=== PATIENT | female | born 1985 | race Caucasian/White ===

== ENCOUNTER 2021-01-15 12:38 | Emergency (ER) | payer OTHER, SELFPAY ==
--- NOTE | ~2021-01-15 | XR_ITS ---
EXAMINATION: XR chest 2V DATE: 01/15/2021 13:20 INDICATION: Cough. Chest pain. Shortness of breath. TECHNIQUE: Frontal and lateral views of the chest were obtained. COMPARISON: Chest 2 views 02/04/2014, CT abdomen and pelvis 12/28/2018 FINDINGS: The chest demonstrates clear lungs without pneumonia, pleural effusion, or pneumothorax. Th e heart size is normal. IMPRESSION: 1. No acute cardiopulmonary disease. Reviewed, dictated and finalized at location B.
--- NOTE | 2021-01-15 12:41 | ED.GENADULT ---
HPI - General Adult General Chief complaint: Upper Respiratory Infection Stated complaint: Congestion,Body Aches Time Seen by Provider: 01/15/21 12:40 Source: patient Mode of arrival: ambulatory Limitations: no limitations History of Present Illness HPI narrative: 35-year-old female patient presents to the [facility] with complaints of upper respiratory symptoms that started yesterday. Patient states she has had a slight productive cough, congestion, chest congestion, runny nose. Patient states she has had slight chills but denies fevers or body aches. Patient states she did have a sore throat yesterday but states that it is better today after using cough drops. Patient states she did take an [place] cold and sinus yesterday. Denies any chest pain or shortness of breath at this time. Denies nausea, vomiting or diarrhea. Patient states she has had both of her Covid vaccines at her last Covid vaccine was sometime in October. Patient denies taking any daily antihistamines but states that she is allergic to pollen. Related Data Home Medications Medication Instructions Recorded Confirmed bupropion HCl [Wellbutrin XL] 150 mg PO QAM 01/15/21 01/15/21 Allergies Allergy/AdvReac Type Severity Reaction Status Date / Time Sulfa (Sulfonamide Allergy Mild chest pain Verified 01/15/21 12:57 Antibiotics) Review of Systems Review of Systems: Narrative: CONSTITUTIONAL: Denies fever, chills, or sweats. EYES: Denies visual changes, redness, or discharge. ENT: Positive rhinorrhea, congestion, sore throat, denies otalgia. CARDIOVASCULAR: Denies chest pain, palpitations, or edema. RESPIRATORY: Positive cough, denies dyspnea. GASTROINTESTINAL: Denies abdominal pain, nausea, vomiting, or diarrhea. GENITOURINARY: Denies dysuria or hematuria. SKIN: Denies rash or itching. MUSCULOSKELETAL: Denies back pain, joint pain, or myalgia. NEUROLOGIC: Denies headache, numbness, or weakness. PSYCHIATRIC: Denies anxiety or depression. [facility] Past Medical History Medical History (Updated 01/15/21 @ 13:42 by KAITLYNN Huggins) Anxiety Depression Gastrointestinal disorder When esophageal bleed, acid tear to lining from nausea and vomiting induced hypertension Seasonal allergies Surgical History Surgical History (Updated 01/15/21 @ 12:49 by KAITLYNN Huggins) History of History of orthopedic surgery Right ankle ligament tears Family History Family History Father Hypertension Family history of arthritis Other Diabetes mellitus Social History Social History Smoking status: Current every day smoker Alcohol intake: never Comments At the time of my signature I agree with nursing past medical history, surgical, social, and family history. There is no relevant family history pertinent to the presenting complaint. Exam Narrative: Exam Narrative: GENERAL: Well-appearing, well-nourished, and in no acute distress. HEAD: Normocephalic, atraumatic. EYES: PERRLA and EOMI. ENT: Nares with erythema and edema noted bilaterally, no rhinorrhea or epistaxis. Mucous membranes moist. Posterior pharynx with no erythema, tonsillar Amanda, exudates or lesions present. There is some postnasal drip noted to the posterior pharynx. Bilateral TMs are clear no erythema or foreign bodies in the canal. NECK: Supple. No lymphadenopathy CHEST: Slightly decreased lung sounds noted to the left upper lobe with very slight inspiratory wheezing. No respiratory distress. Patient able talk in clear complete sentences. No tripoding noted. HEART: Regular rate and rhythm. No murmur heard. Normal peripheral pulses. ABDOMEN: Soft, nontender, nondistended, normal active bowel sounds. EXTREMITIES: Normal range of motion. No edema. SKIN: Warm, dry, no rash. NEURO: No focal deficits. Alert and oriented x3. Course R
[2021-01-15 12:55] VITALS: BP 146/87; PULSE 85; RESP 16; TEMP 36.4; O2SAT 100
== END 2021-01-15 13:48 | disposition home or self-care (01) ==
PROVIDERS: Emergency Provider Nurse Practitioner Family
DX: J06.9 Acute upper respiratory infection, unspecified (principal); R05 Cough; J30.9 Allergic rhinitis, unspecified; F41.9 Anxiety disorder, unspecified; F32.9 Major depressive disorder, single episode, unspecified
CPT/HCPCS: 71046; 99213; G0463

== ENCOUNTER 2021-05-08 14:18 | Outpatient (CLI) | payer BC, SELFPAY ==
--- NOTE | ~2021-05-08 | CT_ITS ---
EXAMINATION: CT abdomen pelvis w con INDICATION: Incisional hernia TECHNIQUE: Computed tomographic images of the abdomen and pelvis were obtained after the administrati on of 100 cc of Omnipaque 350 intravenous contrast. The dose-length product (DLP) was 12/28/2018 mGy-cm . Automated exposure control and iterative reconstruction technique were employed. COMPARISON: 12/28/2018 FINDINGS: The lung bases are clear. The heart size is normal. The liver is diffusely low in attenuati on when compared with the spleen, consistent with hepatic steatosis. The spleen, pancreas, gallbladde r, and adrenal glands are normal. The kidneys are unremarkable. The appendix is surgically absent. No pathologically enlarged abdominal or pelvic lymph nodes are identified. There is no free intraperito padma gas or evidence of bowel obstruction. Cysts of the ovaries measure up to 3.4 cm on the left. No definite incisional hernia is identified. There is mild lumbar spondylosis. A tiny fat-containing umb ilical hernia is noted. IMPRESSION: 1. No definite incisional hernia identified. Reviewed, dictated and finalized at location B.
== END 2021-05-08 14:19 | disposition home or self-care (01) ==
LOC: ANHIMG 14:19
PROVIDERS: Visit Provider Obstetrics & Gynecology
DX: K43.2 Incisional hernia without obstruction or gangrene (principal)
CPT/HCPCS: 74177; Q9967

== ENCOUNTER 2021-08-26 08:22 | Emergency (ER) | payer BC, SELFPAY ==
--- NOTE | ~2021-08-26 | XR_ITS ---
EXAMINATION: XR chest 1V portable EXAM DATE: 08/26/2021 08:50 INDICATION: cough TECHNIQUE: Portable AP frontal chest x-ray was obtained. Comparison is made to prior examination from 01/15/2021. FINDINGS: The lungs are clear. There are no pleural effusions. The cardiomediastinal silhouette is within normal limits. There is no pneumothorax suspected. The bones and soft tissues are unremarka ble. IMPRESSION: Normal chest x-ray exam. Reviewed, dictated and finalized at location A. IMPRESSION: Normal chest x-ray exam.
[2021-08-26 08:34] VITALS: BP 141/78; PULSE 89; RESP 16; TEMP 36.8; O2SAT 99
--- NOTE | 2021-08-26 08:36 | ED.URI ---
HPI - URI/Sore Throat General Chief Complaint: Upper Respiratory Infection Stated Complaint: Cough,Difficulty Breathing Time Seen by Provider: 08/26/21 08:35 Source: patient Mode of arrival: ambulatory Limitations: no limitations History of Present Illness HPI Narrative: Patient is a 35-year-old female presenting for evaluation of fever, cough, vomiting. Patient states that she has felt unwell since Tuesday evening when low-grade fevers began. Maximum temperature has been 101 Fahrenheit. Patient states she has not been taking any Tylenol or ibuprofen at this point. She reports inability to tolerate oral intake, was not able to tolerate any clear liquids yesterday secondary to vomiting. She denies abdominal pain or diarrhea. She denies chest pain or shortness of breath. She reports cough. Patient states her son has been sick with similar symptoms and he has had 2 - Covid test. She is vaccinated for Covid and does have a history of Covid this year as well. Patient denies any pleuritic chest pain. No shortness of breath with exertion. Patient does smoke. Denies history of emphysema or COPD. Denies history of asthma. She denies any wheezing. She denies any calf pain or leg swelling. No history of coagulopathy. She has a Nexplanon for control, denies oral contraceptive. Related Data Home Medications Medication Instructions Recorded Confirmed bupropion HCl [Wellbutrin XL] 150 mg PO QAM 01/15/21 01/15/21 Allergies Allergy/AdvReac Type Severity Reaction Status Date / Time Sulfa (Sulfonamide Allergy Mild chest pain Verified 01/15/21 12:57 Antibiotics) Review of Systems Review of Systems: CONSTITUTIONAL: Reports fever and chills EYES: Denies visual changes, redness, or discharge. ENT: Reports congestion without sore throat or otalgia CARDIOVASCULAR: Denies chest pain, palpitations, or edema. RESPIRATORY: Reports cough, denies shortness of breath GASTROINTESTINAL: Denies abdominal pain, reports nausea and vomiting, denies diarrhea GENITOURINARY: Denies dysuria or hematuria. SKIN: Denies rash or itching. MUSCULOSKELETAL: Denies back pain, joint pain, or myalgia. NEUROLOGIC: Denies headache, numbness, or weakness. [facility] Past Medical History Medical History Anxiety Depression Gastrointestinal disorder When esophageal bleed, acid tear to lining from nausea and vomiting induced hypertension Seasonal allergies Surgical History Surgical History History of History of orthopedic surgery Right ankle ligament tears Family History Family History Father Hypertension Family history of arthritis Other Diabetes mellitus Social History Social History Smoking status: Current every day smoker Alcohol intake: never Exam Narrative: GENERAL: Awake, alert, conversant HEAD: Normocephalic, atraumatic. EYES: PERRLA and EOMI. ENT: Nares clear, no rhinorrhea or epistaxis. Mucous membranes moist. NECK: Supple. CHEST: No respiratory distress, breathing even and non labored, lungs are clear to auscultation bilaterally, no wheezing, no rhonchi, no crackles HEART: Regular rate, sinus rhythm ABDOMEN:Non distended, non tender EXTREMITIES: Normal range of motion. No edema. No calf pain, induration, erythema bilaterally. SKIN: Warm, dry, no rash. NEURO:No focal deficits. Alert and oriented x3 Course Vital Signs Vital signs: Vital Signs Temperature 36.8 C 08/26/21 08:34 Pulse Rate 89 08/26/21 08:34 Respiratory Rate 16 08/26/21 08:34 Blood Pressure 141/78 H 08/26/21 08:34 Pulse Oximetry 99 08/26/21 08:34 Temperature 36.8 C 08/26/21 08:34 Pulse Rate 89 08/26/21 08:34 Respiratory Rate 16 08/26/21 08:34 Blood Pressure 141/78 H 08/26/21
[2021-08-26] MEDS: ONDANSETRON INJ 4 MG/2 ML VIAL IV PUSH (08:52)
[2021-08-26] MEDS: SODIUM CHLORIDE 0.9% IV 1,000 ML 999 ML IV CONT (08:52)
[2021-08-26 09:00] LABS: Basophils Absolute Auto 0.1 K/mm3 (0.0-0.1); Basophils Percent Auto 0.8 % (0.2-1.2); Eosinophils Absolute Auto 0.4 K/mm3 (0-0.3); Eosinophils Percent Auto 4.2 % (0-4.4); Hematocrit 46.5 % (37.0-47.0); Hemoglobin 15.7 g/dL (12.0-15.0); Immature Granulocyte Absolute 0.04 K/mm3 (0.00-0.031); Immature Granulocyte Percent A 0.5 % (0-0.5); Lymphocytes Absolute Auto 1.27 K/mm3 (0.9-3.2); Lymphocytes Percent Auto 14.4 % (18.3-44.2); Mean Corpuscular HGB Conc 33.8 g/dl (32-36); Mean Corpuscular Hemoglobin 30.1 pg (26-34); Mean Corpuscular Volume 89.3 fl (80-100); Mean Platelet Volume 10.4 fl (7.4-10.4); Monocytes Absolute Auto 0.7 K/mm3 (0.1-0.6); Monocytes Percent Auto 7.6 % (2.6-8.5); Neutrophils Absolute Auto 6.4 K/mm3 (1.3-6.7); Neutrophils Percent Auto 72.5 % (45.5-73.1); Platelet Count Result 221 k/mm3 (150-375); Red Blood Count 5.21 M/mm3 (4.2-5.4); Red Cell Distribution Width 12.4 % (11.5-14.5); White Blood Count 8.8 K/mm3 (4.5-10.0)
[2021-08-26 09:10] LABS: Alanine Aminotransferase 32 U/L (4-35); Albumin Level 4.3 g/dL (3.5-5.1); Alkaline Phosphatase 97 U/L (38-126); Anion Gap 9 mmol/L (8-16); Aspartate Amino Transferase 27 U/L (14-36); Bilirubin,Total 0.7 mg/dL (0.2-1.3); Blood Urea Nitrogen 9 mg/dL (7-17); Calcium 9.4 mg/dL (8.4-10.2); Carbon Dioxide 24 mmol/L (22-30); Chloride 104 mmol/L (98-107); Estimated CRCL calculation 102 ml/min; Estimated Glomerular Filt Rate > 60; Glucose 123 mg/dL (65-110); Potassium 3.9 mmol/L (3.4-5.0); Sodium 137 mmol/L (137-145)
[2021-08-26] MEDS: methylPREDNISolone SOD SUCC 125 MG VIAL IV PUSH (09:27)
[2021-08-26 09:48] VITALS: BP 139/75; PULSE 72; RESP 16; O2SAT 100
[2021-08-26 17:58] LABS: SARS-CoV-2 RNA PCR Negative
== END 2021-08-26 09:49 | disposition home or self-care (01) ==
LOC: ANHED 09:28
PROVIDERS: Emergency Provider Emergency Medicine; PCP Family Medicine
DX: J06.9 Acute upper respiratory infection, unspecified (principal); J40 Bronchitis, not specified as acute or chronic; Z20.822 Contact with and (suspected) exposure to COVID-19; F41.9 Anxiety disorder, unspecified; F32.9 Major depressive disorder, single episode, unspecified; F17.200 Nicotine dependence, unspecified, uncomplicated
CPT/HCPCS: 36415; 71045; 80053; 85025; 87804; 96361; 96374; 96375; 99284; C9803; J2405; J2930; J7030; U0003; U0005

== ENCOUNTER → 2021-12-23 08:36 | Outpatient (CLI) | payer BC, SELFPAY ==
--- NOTE | ~2021-12-23 | XR_ITS ---
XR lumbar spine 2-3V DATE: 12/23/2021 08:59 INDICATION: Left low back pain TECHNIQUE: Standing AP, lateral and coned lateral lumbosacral views COMPARISON: None FINDINGS: Normal alignment of the lumbar spine. No fracture or bone destruction is evident. Included lower thoracic and lumbar pedicles are intact. There is minimal degenerative spurring of the lumbar spine. Lumbar and lumbosacral interspaces are we ll preserved. The sacroiliac joints appear normal. IMPRESSION: Minimal degenerative spurring Reviewed, dictated and finalized at location A.
== END ==
PROVIDERS: Visit Provider Chiropractor
DX: M54.50 Low back pain, unspecified (principal)
CPT/HCPCS: 72100

== ENCOUNTER 2021-12-27 12:55 | Emergency (ER) | payer BC, SELFPAY ==
[2021-12-27 13:09] VITALS: BP 147/82; PULSE 103; RESP 18; TEMP 36.6; O2SAT 100
--- NOTE | 2021-12-27 13:35 | ED.GENADULT ---
HPI - General Adult General Chief complaint: Back Pain/Injury Stated complaint: lower back pain radiating down to calf Time Seen by Provider: 12/27/21 13:35 Source: patient Mode of arrival: ambulatory Limitations: no limitations History of Present Illness HPI narrative: 36-year-old female presented for complaint of left hip pain for over 1 week. Pain radiates to left calf. Endorses spasm to buttock and calf. Denies known injury but states she started exercising and has been increasing her treadmill and bicycle time. She states she has been following with a chiropractor and performing exercises, supportive treatments including ice, heat, Epson baths and NSAIDs. Denies numbness, tingling or weakness to the Left leg. Pain worse when sitting/standing too long. Related Data Allergies Allergy/AdvReac Type Severity Reaction Status Date / Time Sulfa (Sulfonamide Allergy Mild chest pain Verified 12/27/21 13:43 Antibiotics) Review of Systems Review of Systems: CONSTITUTIONAL: Denies body aches, fever, chills EYES: Denies visual changes ENT: Denies rhinorrhea, congestion CARDIOVASCULAR: Denies chest pain, palpitations, or edema. RESPIRATORY: Denies cough or dyspnea. GASTROINTESTINAL: Denies abdominal pain, nausea, vomiting, or diarrhea. SKIN: Denies rash, itching, or wounds. MUSCULOSKELETAL:reports left hip pain NEUROLOGIC: Denies headache, numbness, tingling, or weakness. PSYCH: Denies depression or anxiety. All systems reviewed & are unremarkable except as noted in HPI and below PMFSH Past Medical History Medical History Anxiety Depression Gastrointestinal disorder When esophageal bleed, acid tear to lining from nausea and vomiting induced hypertension Seasonal allergies Surgical History Surgical History History of History of orthopedic surgery Right ankle ligament tears Family History Family History Father Hypertension Family history of arthritis Other Diabetes mellitus Social History Social History Smoking status: Current every day smoker Alcohol intake: never Comments At time of signature, I have reviewed and agree with nursing past medical, surgical, social and family history unless otherwise noted. Please see nursing chart for further information. There is no relevant family history pertinent to the presenting complaint Exam Narrative: GENERAL: appears in pain; in no acute distress. HEAD: Normocephalic, atraumatic. EYES: conjunctivae clear NECK: Supple. CHEST: Speaks in full sentences. No respiratory distress. HEART: Regular rate and rhythm. Normal and equal peripheral pulses. EXTREMITIES: Left leg has normal strength and sensation, normal range of motion with flexion/extension/rotation, but endorses pain with movement. Tender to left lower back, left mid buttock over piriformis and left posterior thigh with minimal palpation. No edema or ecchymosis, No open wounds, skin tenting, or obvious deformity; alignment normal, pulse palpable and equal bilaterally, skin warm, dry, pink. Capillary refill less than 3 seconds. Gait is slow/steady. SKIN: Warm, dry, no rash. NEURO: Alert and oriented x3. PSYCH: Normal mood and affect Course Course Emergency Course: Patient is aware of diagnosis, understands and agrees to treatment plan. Anticipatory guidance given. Patient agrees to follow-up as directed and is aware of reasons to seek care at the emergency department. Portions of this record may have been created with voice recognition software Level of Care: Express Care Visit Vital Signs Vital signs: Vital Signs Temperature 97.9 F 12/27/21 13:09 Pulse Rate 103 H 12/27/21 13:09 Respiratory Rate 18 12/27/21 13:09 Blood Pressure
== END 2021-12-27 13:50 | disposition home or self-care (01) ==
PROVIDERS: Emergency Provider Nurse Practitioner Family; PCP Family Medicine
DX: G57.02 Lesion of sciatic nerve, left lower limb (principal); F17.200 Nicotine dependence, unspecified, uncomplicated
CPT/HCPCS: 99213; G0463

== ENCOUNTER 2022-03-15 09:57 | Emergency (ER) | payer BC, SELFPAY ==
--- NOTE | ~2022-03-15 | CT_ITS ---
EXAMINATION: CT lumbar spine wo con DATE: 03/15/2022 11:03 INDICATION: Low back pain. TECHNIQUE: Computed tomography (CT) of the lumbar spine was performed without intravenous contrast. A utomated exposure control and iterative reconstruction technique were employed. The dose-length produ ct was 1512.14 mGy-cm. COMPARISON: Lumbar spine radiograph dated 12/23/2021 FINDINGS: 3-4 mm retrolisthesis L5 on S1. Vertebral body heights are normal. No fracture. No pars interarticula ris defects. Mild disc height loss at L5-S1. Paravertebral soft tissues are unremarkable. Postoperati ve changes anterior to the right psoas muscle in the right lower quadrant likely related to prior ivone endectomy. Mild bilateral sacroiliac osteoarthritis along with bilateral osteophytic condense and zenaida iac. Paravertebral soft tissues are unremarkable. The following disc levels are specifically discusse d: T12-L1: The disc does not extend beyond the endplate margin. There is moderate left and mild to moder ate right facet joint osteoarthritis. There is no neural foraminal stenosis. There is no central carolee l stenosis. L1-L2: The disc does not extend beyond the endplate margin. There is mild right and mild to moderate left facet joint osteoarthritis. There is no neural foraminal stenosis. There is no central canal denise nosis. L2-L3: Disc is mildly bulging. There is moderate left and mild to moderate right facet joint osteoart hritis. There is no neural foraminal stenosis. There is no central canal stenosis. L3-L4: Disc is mildly bulging. There is mild right and and mild to moderate left facet joint osteoart hritis. There is mild bilateral neural foraminal stenosis. There is mild central canal stenosis. L4-L5: Disc is mildly bulging with superimposed left foraminal zone disc protrusion. There is mild le ft and mild to moderate right facet joint osteoarthritis. There is mild right and mild to moderate le ft neural foraminal stenosis. There is mild central canal stenosis. L5-S1: Disc is bulging with superimposed left foraminal zone disc extrusion with disc material extend ing slightly caudal to the level of the superior endplate of S1. There is mild bilateral facet joint osteoarthritis. There is mild right and mild to moderate left neural foraminal stenosis. There is mil d central canal stenosis lower narrowing of the left lateral recess at the disc extrusion exerting ma ss effect upon the traversing left S1 nerve root. IMPRESSION: 1. Mild lumbar spondylosis. Reviewed, dictated and finalized at location B. IMPRESSION: 1. Mild lumbar spondylosis.
[2022-03-15 10:09] VITALS: BP 133/66; PULSE 94; RESP 20; TEMP 36.6; O2SAT 100
[2022-03-15] MEDS: methylPREDNISolone SOD SUCC 125 MG VIAL IV PUSH (11:18)
[2022-03-15] MEDS: KETOROLAC 30 MG/ML VIAL (*BKC) IV PUSH (11:19)
[2022-03-15 11:21] VITALS: BP 119/75; PULSE 64; RESP 14; O2SAT 100
--- NOTE | 2022-03-15 11:47 | ED.GENADULT ---
HPI - General Adult General Chief complaint: Extremity Injury, Lower Stated complaint: leg pain Time Seen by Provider: 03/15/22 09:59 Source: RN notes reviewed History of Present Illness HPI narrative: Patient presents emergency department from home for left leg pain. Patient states she has had pain for the past 3 months. The pain is located in the left buttocks and radiates down the left leg. Patient states is worse with long sitting and bending states she has been seen in the emergency department and has been told by Dr. Ayers that she may need physical therapy she denies any new trauma or injury to the back of the leg she denies any fevers or chills abdominal pain numbness or tingling in extremities bowel or bladder incontinence or any other symptoms states she has not taking pain medication today Related Data Allergies Allergy/AdvReac Type Severity Reaction Status Date / Time Sulfa (Sulfonamide Allergy Mild chest pain Verified 12/27/21 13:43 Antibiotics) Review of Systems Review of Systems: Gen.: Denies fevers or chills ENT: Denies congestion Respiratory: Denies shortness of breath or cough CV: Denies chest pain or palpitations GI: Denies abdominal pain nausea, emesis or diarrhea denies incontinence Musculoskeletal: See HPI Neuro: Denies numbness, tingling, weakness or focal weakness Skin: Denies rash Except as documented, all other systems reviewed and negative [facility] Past Medical History Medical History Anxiety Depression Gastrointestinal disorder When esophageal bleed, acid tear to lining from nausea and vomiting induced hypertension Seasonal allergies Surgical History Surgical History History of History of orthopedic surgery Right ankle ligament tears Family History Family History Father Hypertension Family history of arthritis Other Diabetes mellitus Social History Social History Smoking status: Current every day smoker Alcohol intake: never Exam Narrative: APPEARANCE: No acute distress, nontoxic, resting in bed EYES: EOMI HEENT: Normocephalic, atraumatic, OMM RESPIRATORY: No respiratory distress Clear to auscultation bilaterally with no rhonchi wheezing or rales. CARDIOVASCULAR: Regular rate and rhythm without murmurs rubs or gallops. ABDOMINAL: Soft, nontender, nondistended, no rebound or guarding MUSCULOSKELETAl: Moves all extremities. No clubbing, cyanosis or edema. Bilateral calves soft and nontender bilateral dorsalis pedis pulse 2+ Back: No midline thoracic or lumbar tenderness palpation tender palpation over left piriformis region NEURO: Awake and alert. Following commands, speech normal, no focal deficits, muscle strength 5 out of 5 bilateral upper and lower extremities SKIN:: Warm, dry. No rashes lesions or abrasions PSYCHIATRIC: Normal affect/mood, Course Course Emergency Course: Reviewed old records Discussed with patient results of workup and diagnosis. Discussed need for follow-up with primary care, proper use of medication, and reasons to return to the emergency department. Patient understands and agrees to current treatment plan Vital Signs Vital signs: Vital Signs Temperature 97.8 F 03/15/22 10:09 Pulse Rate 94 03/15/22 10:09 Respiratory Rate 20 03/15/22 10:09 Blood Pressure 133/66 03/15/22 10:09 Pulse Oximetry 100 03/15/22 10:09 Oxygen Delivery Room Air 03/15/22 10:09 Temperature 97.8 F 03/15/22 10:09 Pulse Rate 64 03/15/22 11:21 Respiratory Rate 14 03/15/22 11:21 Blood Pressure 119/75 03/15/22 11:21 Pulse Oximetry 100 03/15/22 11:21 Oxygen Delivery Room Air 03/15/22 10:09 Medical Decision Making MDM Narrative Medical decision making narrative: Patient
== END 2022-03-15 12:27 | disposition home or self-care (01) ==
PROVIDERS: Emergency Provider Emergency Medicine; PCP Family Medicine
DX: M54.32 Sciatica, left side (principal); F17.200 Nicotine dependence, unspecified, uncomplicated; M47.816 Spondylosis without myelopathy or radiculopathy, lumbar region
CPT/HCPCS: 72131; 96374; 96375; 99284; J1885; J2930

== ENCOUNTER → 2022-09-10 09:18 | Outpatient (CLI) | payer BC, SELFPAY ==
--- NOTE | ~2022-09-10 | US_ITS ---
EXAMINATION: US pelvic complete DATE: 09/10/2022 10:22 INDICATION: Pelvic pain. Comparison:08/25/2017 TECHNIQUE: Multiple transabdominal and endovaginal sonographic images of the pelvis performed. FINDINGS: The uterus measures 11.2 x 4.8 x 5.6 cm. The endometrial complex measures 3 mm. The right ovary measures 2.5 x 2.1 x 3.2 cm and the left ovary measures 3.3 x 2.3 x 3.1 cm. There ar e small follicles in each ovary. Normal doppler signal in both ovaries. There is no free fluid in the pelvis. There are no abnormal masses seen on either side. IMPRESSION: 1. Mildly enlarged uterus. Otherwise, unremarkable pelvic ultrasound. Reviewed, dictated and finalized at location B. [employer]
== END ==
PROVIDERS: PCP Family Medicine; Visit Provider Obstetrics & Gynecology
DX: R10.2 Pelvic and perineal pain (principal); N85.2 Hypertrophy of uterus
CPT/HCPCS: 76856

== ENCOUNTER 2023-03-16 13:22 | Outpatient (CLI) | payer BC, SELFPAY | END 2023-03-16 13:23 | disposition home or self-care (01) | LOC: ANHAUDIO 13:22 | PROVIDERS: PCP Family Medicine; Visit Provider Family Medicine | DX: R42 Dizziness and giddiness (principal); H90.3 Sensorineural hearing loss, bilateral | CPT/HCPCS: 92557; 92567 ==

== ENCOUNTER 2023-05-02 11:55 | Outpatient (CLI) | payer BC, SELFPAY ==
--- NOTE | ~2023-05-02 | XR_ITS ---
Left foot Technique: AP, oblique, and lateral views were obtained. Clinical History: Lateral left foot lump Findings: No acute fracture or dislocation is seen. Osseous alignment is anatomic. Plantar calcaneal spur present. Joint spaces are preserved without erosive or degenerative change. Soft tissues are unr emarkable. Impression: Plantar calcaneal spur, otherwise unremarkable exam. Reviewed, dictated and finalized at location . Impression: Plantar calcaneal spur, otherwise unremarkable exam.
== END 2023-05-02 11:56 | disposition home or self-care (01) ==
PROVIDERS: PCP Family Medicine; Visit Provider Physician Assistant
DX: M77.32 Calcaneal spur, left foot (principal)
CPT/HCPCS: 73630

== ENCOUNTER 2024-02-02 11:55 | Outpatient (CLI) | payer BC, SELFPAY ==
--- NOTE | ~2024-02-02 | MM_ITS ---
EXAMINATION: MM screening aba BI w [place] HISTORY: Screening mammogram TECHNIQUE: Craniocaudal and mediolateral oblique 3-D tomosynthesis images were obtained and synthetic 2-D images were generated. CAD analysis was submitted and interpreted. COMPARISON: 04/05/2017 Limited left breast ultrasound examination One slice 12/02/2017 Limited left breast ultrasound examination 08/30/2016 bilateral diagnostic mammogram and Limited left breast ultrasound examination BREAST PARENCHYMAL COMPOSITION: There are scattered areas of fibroglandular density. FINDINGS: Stable mild fibroglandular asymmetry since 08/30/2016. There is no evidence of suspicious ma ss, calcification, or architectural distortion to suggest malignancy in either breast. There has been no suspicious interval change. IMPRESSION: 1. No mammographic evidence of malignancy. 2. Recommend routine screening mammography in one year. BI-RADS Category 1: Negative Reviewed, dictated and finalized at location B.
== END 2024-02-02 11:56 ==
LOC: MICIMG 11:59
PROVIDERS: PCP Obstetrics & Gynecology; Visit Provider Obstetrics & Gynecology
DX: Z12.31 Encounter for screening mammogram for malignant neoplasm of breast (principal)
CPT/HCPCS: 77063; 77067

== ENCOUNTER 2024-09-17 05:54 | Emergency (ER) | payer BC, SELFPAY ==
[2024-09-17 05:58] VITALS: BP 137/73; PULSE 97; RESP 20; TEMP 36.7; O2SAT 99
[2024-09-17 06:19] VITALS: BP 134/67; O2SAT 99
[2024-09-17 06:48] LABS: Influenza A QL RT-PCR Negative (Negative); Influenza B QL RT-PCR Positive (Negative); RSV RNA, RT-PCR Negative (Negative); SARS-CoV-2 RNA PCR Negative (Negative)
--- NOTE | 2024-09-17 06:50 | ED.GENADULT ---
HPI - General Adult General Chief complaint: Upper Respiratory Infection Stated complaint: Chills, fever, pain with coughing, sob Time Seen by Provider: 09/17/24 06:04 History of Present Illness HPI narrative: Patient is a 38-year-old female who presents to the emergency department this morning complaining of a cough, nasal congestion, body aches, chills and generally not feeling well. Admits that she was exposed to influenza by her son who tested positive. Patient's symptoms started of last week. She also admits to shortness of breath, denies any nausea, vomiting, abdominal pain, dysuria or hematuria. Denies any additional symptoms or concerns at this time. Related Data Home Medications ?Medication ?Instructions ?Recorded ?Confirmed ?Last Taken ?Type gabapentin 400 mg capsule 400 mg PO DAILY 05/02/23 06/09/23 Unknown History Allergies Allergy/AdvReac Type Severity Reaction Status Date / Time Sulfa (Sulfonamide Allergy Mild chest pain Verified 06/10/23 10:34 Antibiotics) Review of Systems Review of Systems: All systems are reviewed and are negative unless stated otherwise in the HPI. [facility] Past Medical History Medical History Anxiety Depression induced hypertension Gastrointestinal disorder When esophageal bleed, acid tear to lining from nausea and vomiting Seasonal allergies Eustachian tube dysfunction Surgical History Surgical History History of orthopedic surgery Right ankle ligament tears History of Family History Family History Father Hypertension Family history of arthritis Other Diabetes mellitus Social History Social History Smoking packs per day: 0.25 Smoking cigarettes per day: 5.0 Smoking status: Current every day smoker Alcohol intake: never Drinks per week: 0 Substance use: never Substance use type: does not use Lack of Transportation: No Lack of Food: Never True Current Housing: I Have Housing Concerned About Future Housing: No Difficulty Paying Gas/Electric Bills: No Difficulty Paying for Meds: No Currently Unemployed: No Education: Associate Degree Difficulty w/ Childcare or Family Care: No Living arrangements: with family Occupation/Education: occupation Gender identity (if verbalized by the patient): Female Sexual Orientation (if Verbalized by the Patient): Straight or Heterosexual Exam Narrative: General: Alert, awake, afebrile, in no acute distress. HEENT: PERRL, no rhinorrhea, no post nasal drip, oropharynx clear. Neck: Trachea midline, no JVD, no lymphadenopathy. Cardiovascular: Regular rate and rhythm, no murmurs, rubs or gallops, no peripheral edema. Respiratory: Clear to auscultation bilaterally, no tachypnea, no wheezing, no rhonchi, no rubs, no respiratory distress. Abdomen: Soft, nontender, nondistended, no rebound, no guarding, no peritoneal signs. Musculoskeletal: No joint swelling or deformity, normal muscle tone. Skin: No rashes or petechia, no signs of infection. Psychiatric: Alert and oriented, normal behavior and judgment for situation. Neurological: Alert and oriented to person, place, and time. Follows all commands. No focal deficits, speech is clear and fluent. Course Vital Signs Vital signs: Vital Signs Temperature 98.1 F 09/17/24 05:58 Pulse Rate 97 09/17/24 05:58 Respiratory Rate 20 09/17/24 05:58 Blood Pressure 137/73 09/17/24 05:58 Pulse Oximetry 99 09/17/24 05:58 Oxygen Delivery Room Air 09/17/24 05:58 Temperature 98.1 F 09/17/24 05:58 Pulse Rate 97 09/17/24 05:58 Respiratory Rate 20 09/17/24 05:58 Blood Pressure 134/67 09/17/24 06:19 Pulse Oximetry 99 09/17/24 06:19 Oxygen Delivery Room Air 09/17/24 06:10 Medical Decision Making MDM Narrative Medical decision making narrative: The patient was evaluated by myself in the emergency department. History is obtained from patient who is an independent historian and physical exam was performed. External medical records were reviewed at this time. Viral swabs were obtained and noted to be positive for influenza B. Differential diagnosis considerations include acute viral syndrome including influenza, COVID, RSV, rhino virus. Comorbidities impacting this visit include none. I have evaluated and discussed social determinants of health with the patient that could potentially impact subsequent diagnosis and treatment plans. On repeat assessment of the patient, reevaluation revealed that the patient is doing well and is in no acute distress. Patient symptoms have Remained stable since she arrived to our emergency department. Repeat vital signs were all reviewed and noted to be stable. Differential diagnosis and treatment plan were discussed with the patient at bedside. Patient agrees with discussion and after shared medical decision making agrees with discharge. All questions were answered to the patient's satisfaction. Patient will follow up with her PCP in 3-5 days. Patient was provided with strict return precautions and instructed to return to the emergency department if any new or worsening symptoms develop. The patient was discharged in stable condition. Vital Signs Vital Signs: Vital Signs Temperature 98.1 F 09/17/24 05:58 Pulse Rate 97 09/17/24 05:58 Respiratory Rate 20 09/17/24 05:58 Blood Pressure 137/73 09/17/24 05:58 Pulse Oximetry 99 09/17/24 05:58 Oxygen Delivery Room Air 09/17/24 05:58 Temperature 98.1 F 09/17/24 05:58 Pulse Rate 97 09/17/24 05:58 Respiratory Rate 20 09/17/24 05:58 Blood Pressure 134/67 09/17/24 06:19 Pulse Oximetry 99 09/17/24 06:19 Oxygen Delivery Room Air 09/17/24 06:10 Lab Data Labs: Lab Results 09/17/24 Range/Units 06:02 Influenza A (RT-PCR) Negative (Negative) Influenza B (RT-PCR) Positive A (Negative) RSV (RT-PCR) Negative (Negative) SARS-CoV-2 RNA (RT-PCR) Negative (Negative) Discharge Plan Discharge Clinical Impression: Influenza, Viral infection Patient Disposition: Home, Self-Care Condition: Improved Instructions: Antibiotic Form, Influenza (ED) Additional Instructions: Please follow-up with your family doctor within the next 3-5 days. Return to the emergency department if any new or worsening symptoms develop. Alternate between Tylenol and ibuprofen as needed for body aches and fevers. Patient Language: Spanish Prescriptions: No Action gabapentin 400 mg capsule 400 mg PO DAILY duloxetine 60 mg capsule,delayed release(DR/EC) See Rx Instructions .ROUTE .COMPLEX Qty: 90 2RF Dose Instruction: TAKE 1 CAPSULE BY MOUTH DAILY Rx Instructions: TAKE 1 CAPSULE BY MOUTH DAILY Follow-up/Referrals: Kevin Gallagher MD [Primary Care Provider] - Rony Riddle MD [Physician] - 3 Days Stand Alone Forms: Work/School Release IP Time of Disposition: 06:51
--- OUTSIDE RECORDS SUMMARY | 2024-09-24 06:27 | XMS_ITS ---
Author Organization [facility] [place] Address [address] [place] [address] Care Team Providers Care Whitewasher Name Role Phone Ike Riggs Unavailable [phone] REASON FOR VISIT Repeat inj from Encounters Encounter Location Date Provider Diagnosis [facility] [address] [place] [address] 02/03/2024 Ike Riggs PLAN OF TREATMENT No Information Progress Notes * Jami MARSHALLDOB:1985 (39 yo F)Acc No.[id number]:02/03/2024 Progress Notes Patient:??Jami MARSHALL Provider:??Ike Riggs MD :1985?Age:38 Y?Sex:Fe male Date:02/03/2024 Address:[address] [place], [place] [id number] Subjective: * Chief Complaints: * ?1. Repeat inj from Feb. * Medical History:?? Objective: Assessment: Plan: * Treatment: * Images: * Sign off status: Pending * Provider:??Ike Riggs MD Date:??06/2024
--- OUTSIDE RECORDS SUMMARY | 2024-09-24 06:27 | XMS_ITS | Patient Health Record ---
Author Organization [facility] [place] Address [address] [place] [address] Care Team Providers Care Wind Project Manager Name Role Phone Ike Riggs Unavailable [phone] ALLERGIES Allergen (clinical drug ingredient) Drug/Non Drug Allergy documented on EMR Reaction Allergy Type Onset Date Status sulfacetamide Sulfacetamide Unknown Drug Allergy Active REASON FOR REFERRAL No Information MEDICATIONS Medication SIG (Take, Route, Fr equency, Duration) Notes Start Date End Date Status Cymbalta 60 MG 1 capsule Orally Once a day Active Tylenol Active Gabapentin 300 MG 1 capsule Orally Once a day Active PROBLEMS Problem Type ICD Code Onset Dates Problem Status W/U Status Risk SNOMED Code Notes Problem Lumbago with sciatica, left side (M54.42) Active confirmed Sciatica (65399022) Problem Lumbosacral radiculopathy (M54.17) Active confirmed Lumbosacral radiculopathy (2135650) VITAL SIGNS Heart Rate 84 /min 02/24/2024 Temperature 98.1 degrees Fahrenheit 02/24/2024 Respiratory Rate 18 /min 02/24/2024 Blood pressure diastolic 88 mm Hg 02/24/2024 Height 62 in 02/24/2024 Blood pressure systolic 134 mm Hg 02/24/2024 Weight 195 lbs 02/24/2024 BMI 35.66 kg/m2 02/24/2024 Encounters Encounter Location Date Provider Diagnosis [facility] [address] [place] [address] 01/27/2024 Ike Cajigal [facility] [address] [place] [address] 02/03/2024 Ike Cajigal [facility] [address] [place] [address] 02/24/2024 Ike Cajigal Lumbago with sciatic a, left side M54.42 and Lumbosacral radiculopathy M54.17 ASSESSMENTS Encounter Date Diagnosis Assessment Notes Treatment Notes Treatment Clinical Notes Section Notes 02/24/2024 Lumbago with sciatica, left side (ICD-10 - M54.42) 02/24/2024 Lumbosacral radiculopathy (ICD-10 - M54.17) 02/24/2024 Other Plan:1. Will no t pursue opioid therapy in this patient.2. 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 Recommend to remain as active as possible. 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 MRI lumbar spine reviewed showing multiple levels of foraminal stenosis. Please see scanned documents for more details.5. Recommended to continue gabapentin for neuropathic pain.6. History of left L5-S1 selective DYAN with 90% improvement in pain last completed in 02/2023. Repeat today.7. Return to clinic as needed PLAN OF TREATMENT No Information MEDICAL (GENERAL) HISTORY Medical History History ICD Code ulcers GI Surgical History Surgery Date(Month/Year) section 2x 2008, 2018 appendectomy 2018
--- OUTSIDE RECORDS SUMMARY | 2024-09-24 06:27 | XMS_ITS ---
Author Organization [facility] Address [address] [facility] [place] [address] Care Team Providers Care Motors And Controls Tester Name Role Phone Ike Riggs Unavailable [phone] ALLERGIES Allergen (clinical drug ingredient) Drug/Non Drug Allergy documented on EMR Reaction Allergy Type Onset Date Status sulfacetamide Sulfacetamide Unknown Drug Allergy Active REASON FOR VISIT Procedure: Left L5-S1 selective DYAN MEDICATIONS Medication SIG (Take, Route, Fr equency, Duration) Notes Start Date End Date Status Cymbalta 60 MG 1 capsule Orally Once a day Active Tylenol Active Gabapentin 300 MG 1 capsule Orally Once a day Active VITAL SIGNS Temperature 98.1 degrees Fahrenheit 02/24/20 24 Blood pressure systolic 134 mm Hg 02/24/20 24 Blood pressure diastolic 88 mm Hg 024 Heart Rate 84 /min 02/24/2024 Respiratory Rate 18 /min 02/24/2024 Height 62 in 02/24/2024 Weight 195 lbs 02/24/2024 BMI 35.66 kg/m2 02/24/2024 Encounters Encounter Location Date Provider Diagnosis [place] [facility] [address] [facility] [place] [address] 02/24/2024 Ike Dunlapricki Lumbago with sciatic a, left side M54.42 and Lumbosacral radiculopathy M54.17 ASSESSMENTS Encounter Date Diagnosis Assessment Notes Treatment Notes Treatment Clinical Notes Section Notes 02/24/2024 Lumbago with sciatica, left side (ICD-10 - M54.42) 02/24/2024 Lumbosacral radiculopathy (ICD-10 - M54.17) 02/24/2024 Other Plan:1. Will no t pursue opioid therapy in this patient.2. 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 Recommend to remain [...] to clinic as needed PLAN OF TREATMENT Treatment Notes Assessment Notes Other Plan:1. Will not pur yudelka opioid therapy in this patient.2. 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 Recommend to remain as active as possible. 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 MRI lumbar spine reviewed showing multiple levels of foraminal stenosis. Please see scanned documents for more details.5. Recommended to continue gabapentin for neuropathic pain.6. History of left L5-S1 selective DYAN with 90% improvement in pain last completed in 02/2023. Repeat today.7. Return to clinic as needed Next Appt Details Follow Up: prn, Reason: Procedure Notes * Category Sub-Category Detail Notes DCC: Lumbar Transforaminal Epidural Steroid Injection Lumbar Transforaminal Epidural Steroid Injection Lumbar transforaminal epidural steroid injection Procedure: Lumbar transforaminal epidural steroid injection. Location: L5-S1 on left. Preoperative diagnosis: Lumbar radiculopathy. Postoperative diagnosis: Same. Medication used: 1cc Depomedrol 80mg/cc, 1cc 0.5% lidocaine. Sedation: None. Technique: After obtaining informed consent, the patient was brought the procedure suite and placed in the prone position. A timeout was completed prior to the procedure. The low back was exposed and prepped with chlorhexadine. Sterile drapes were applied. The C-arm was used to identify the L5-S1 foramen on the left side(s) in the oblique view. A 25g 1.5inch needle was used to anesthetize the skin with 3cc 0.5% lidocaine. A 22g 5inch spinal needle was inserted under fluoroscopic guidance towards the superior aspect of the foramen and inferolateral aspect of the pars inticularis. A lateral view was obtained to confirm placement of the needle. After negative aspiration of heme/CSF, 1cc of omnipaque 240 was injected showing epidural spread. An AP view was obtained showing epidural spread. After negative aspiration of heme/CSF, the above medication was injected. The needles were removed without incident. The patient tolerated the procedure well without complication. The patient was transported and observed in the recovery area. Postoperative vitals were obtained and the patient discharged home in stable condition. Progress Notes * Jami MARSHALLDOB:1985 (38 yo F)Acc No.[id number]:02/24/2024 Progress Notes Patient:??Jami MARSHALL Provider:??Ike Riggs MD :1985?Age:38 Y?Sex:Fe male Date:02/24/2024 Address:[address] [place] [address] Subjective: * Chief Complaints: * ?Procedure: Left L5-S1 selective DYAN * HPI: ?Follow-up Questionnaire:? The patient is a 38-year-old female who presents clinic for procedure, left L5-S1 selective DYAN. Complains of low back and left leg pain. History of last left L5-S1 selective DYAN completed in February 2023 with 100% improvement pain until recently. No further complaints. ?Pain Evaluation??This patient encounter [place] [facility] The patient completed a questionnaire on the progress that has been made since the last office visit. This form was reviewed and the responses are included in this progress note..?Location of pain:??lower back.?Onset of pain:??years ago.?Average Pain Since Last Visit on Scale of 0 to 10:??5.?Number describing interference w/enjoyment of life:??5.?Relief from Injections/Medications:??b - I am much better..?Improvement in functional ability:??a - I am back to doing everything I want to do and even more. I am back to work..?Level of Pain on 1-10 Scale w/ 10 being most severe- TODAY??6.?Level of Pain on 1-10 Scale w/ 10 being most severe- LEAST??0.?Level of Pain on 1-10 Scale w/ 10 being most severe- WORST??8.?Pain Level on 1-10 Scale w/ 10 being most severe- OVERALL??5.?Words that best describe the pain:??shooting, aching, electric shock.?Duration of pain:??very variable.?Aggravating/Associated factors of pain:??walking, standing, sitting.?The Pain is Associated with:??tingling.?Relieving factors of pain:??relaxation, lying down.?? * ROS:?Pain Management ROS:?Patient Denies: GENERAL:??weight or appetite changes, fever, chills, disturbed sleeping habits.??Patient Denies: EYE:??eye infections, blurred vision, double vision, blindness.??Patient Reports: ENT:??hearing loss.??Patient Denies: ENT:???inflamed nose, hoarseness, sore throat, bloody nose, sinusitis, dizziness.??Patient Denies: CARDIAC:??chest pains, heart murmur, skipped beats.??Patient Denies: GENITOURINARY??bladder incontinence, difficulty urinating.??Patient Denies: RESPIRATORY??cough, coughing up blood, wheezing, shortness of breath, difficulty breathing on exertion.??Patient Denies: GI??constipation, diarrhea, blood in stools, nausea/vomiting.??Patient Denies: NEUROLOGIC??headaches, dizziness, falling, seizures, numbness, tremor.??Patient Denies: ENDOCRINE??hot and cold flashes.??Patient Denies: HEMATOLOGICAL??easy bruisability, difficulty in clotting the blood.??Patient Denies: JOINTS??joint or muscle limitation and pain other than the present illness.??Patient Denies: PSYCHIATRIC:??depression, mood swings, anxiety.??Patient Denies: SKIN??lacerations, abrasions, postules, nodules, tumors, breast changes.? * Medical History:?? * Surgical History:?? section 2x 2009, 2018appendectomy 2018 * Hospitalization/Major Diagno stic Procedure:??No Hospitalization History. * Family History:??Father: ali ve, diagnosed with Other specified conditions influencing health status.??Mother: alive, diagnosed with Other specified conditions influencing health status.?? * Social History:?Education:?How far did you get in your education?: high school. * Medications:??TakingCymbalta 60 MG Capsule Delayed Release Particles 1 capsule Orally Once a day Tylenol Gabapentin 300 MG Capsule 1 capsule Orally Once a day Medication List reviewed and reconciled with the patientTaking Cymbalta 60 MG Capsule Delayed Release Particles 1 capsule Orally Once a day Taking Tylenol Taking Gabapentin 300 MG Capsule 1 capsule Orally Once a day Medication List reviewed and reconciled with the patient * Allergies:??Sulfacetamideno[ Allergies Verified] Objective: * Vitals:??Temp:98.1F, HR:84/m in, BP:134/88mm Hg, Wt:195lbs, BMI:35.66Index, Ht: 62 in, RR:18/min, Ht-cm: 157.48 cm, Wt-k.45 kg. * Examination: ?...: ?BACK:??+ SLR to LLE.? Assessment: * Assessment: 1.??Lumbago with sciatica, l eft side - M54.42 (Primary)??2.??Lumbosacral radiculopathy - M54.17?? Plan: * Treatment: * Procedures:?DCC: Lumbar Transforaminal Epidural Steroid Injection:?Lumbar Transforaminal Epidural Steroid Injection??Lumbar transforaminal epidural steroid injection Procedure: Lumbar transforaminal epidural steroid injection. Location: L5-S1 on left. Preoperative diagnosis: Lumbar radiculopathy. Postoperative diagnosis: Same. Medication used: 1cc Depomedrol 80mg/cc, 1cc 0.5% lidocaine. Sedation: None. Technique: After obtaining informed consent, the patient was brought the procedure suite and placed in the prone position. A timeout was completed prior to the procedure. The low back was exposed and prepped with chlorhexadine. Sterile drapes were applied. The C-arm was used to identify the L5-S1 foramen on the left side(s) in the oblique view. A 25g 1.5inch needle was used to anesthetize the skin with 3cc 0.5% lidocaine. A 22g 5inch spinal needle was inserted under fluoroscopic guidance towards the superior aspect of the foramen and inferolateral aspect of the pars inticularis. A lateral view was obtained to confirm placement of the needle. After negative aspiration of heme/CSF, 1cc of omnipaque 240 was injected showing epidural spread. An AP view was obtained showing epidural spread. After negative aspiration of heme/CSF, the above medication was injected. The needles were removed without incident. The patient tolerated the procedure well without complication. The patient was transported and observed in the recovery area. Postoperative vitals were obtained and the patient discharged home in stable condition..? * Procedure Codes:??99994 INJ FORAMEN EPIDURAL L/S * Preventive Medicine:?PQRS:?PQRS??G8417: BMI above normal (overweight) and f/u plan documented., G8428: Current medication with name, dosage, frequency, or route NOT documented, not given - performance NOT met., 4004F:Patient screened for tobacco use and identified as a user and received intervention..?Oswestry Score:?Oswestry Score??7.?? * Follow Up:??prn * Images: * Sign off status: Completed true * Provider:??Ike Riggs MD Date:?? History and Physical Notes * HPI (History of Present Illness) Category Sub-Category Detail Notes Category Not es Follow-up Questionnaire Average Pain Sin ce Last Visit on Scale of 0 to 10: 5 Number describing interferen ce w/enjoyment of life: 5 Relief from Injections/Medications: b - I am much better. Improvement in functional ability: a - I am back to doing everything I want to do and even more. I am back to work. Pain Evaluation [place] encount [place] [facility] The patient completed a questionnaire on the progress that has been made since the last office visit. This form was reviewed and the responses are included in this progress note. Onset of pain: years ago Location of pain: lower back Duration of pain: very variable Words that best describe the pain: shoot ing, aching, electric shock Aggravating/Associated factors of pain: walking, standing, sitting Relieving factors of pain: relaxation, l fco down Level of Pain on 1-10 Scale w/ 10 being most severe- TODAY 6 Level of Pain on 1-10 Scale w/ 10 being most severe- LEAST 0 Level of Pain on 1-10 Scale w/ 10 being most severe- WORST 8 Pain Level on 1-10 Scale w/ 10 being most severe- OVERALL 5 The Pain is Associated with: tingling Examination Category Sub-Category Detail Notes Category Not es ... BACK: + SLR to LLE
--- OUTSIDE RECORDS SUMMARY | 2024-09-24 06:27 | XMS_ITS ---
Author Organization [facility] [place] Address [address] [place] [address] Care Team Providers Care General Merchandise Manager Name Role Phone Ike Riggs Unavailable [phone] REASON FOR VISIT Repeat inj from Encounters Encounter Location Date Provider Diagnosis [place] [facility] [address] [place] [address] 01/27/2024 Ike Riggs PLAN OF TREATMENT No Information Progress Notes * Jami MARSHALLDOB:1985 (39 yo F)Acc No.[id number]:01/27/2024 Progress Notes Patient:??Jami MARSHALL Provider:??Ike Riggs MD :1985?Age:38 Y?Sex:Fe male Date:01/27/2024 Address:[address] [place], [place] [id number] Subjective: * Chief Complaints: * ?1. Repeat inj from Feb. * Medical History:?? Objective: Assessment: Plan: * Treatment: * Images: * Sign off status: Pending * Provider:??Ike Riggs MD Date:??11/2023
== END 2024-09-17 07:00 | disposition home or self-care (01) ==
PROVIDERS: Emergency Provider Emergency Medicine; PCP Obstetrics & Gynecology
DX: J10.1 Influenza due to other identified influenza virus with other respiratory manifestations (principal); F17.210 Nicotine dependence, cigarettes, uncomplicated; Z20.822 Contact with and (suspected) exposure to COVID-19
CPT/HCPCS: 87637; 96372; 99283

== ENCOUNTER 2025-01-18 12:44 | Outpatient (CLI) | payer BC, SELFPAY ==
--- NOTE | ~2025-01-18 | MR_ITS ---
EXAMINATION: MR foot LT wo con DATE: 01/18/2025 13:31 INDICATION: Ganglion cyst at the left ankle. TECHNIQUE: Magnetic resonance imaging (MRI) of the left ankle was performed without intravenous contr ast. Sequences axial PD-weighted FSE, axial and coronal PD-weighted FS FSE, sagittal and coronal T1-w eighted FSE and sagittal fluid sensitive FSE STIR. COMPARISON: None. FINDINGS: Medial ankle ligaments: Deep and superficial deltoid ligaments as well as the spring ligament are normal. Lateral ankle ligaments: The anterior and posterior inferior tibiofibular ligaments are normal. The anterior talofibular, calc aneofibular and posterior talofibular ligaments are normal. Tendons: Achilles tendon is normal. The peroneus longus and brevis tendons are normal small amount of surround ing fluid consistent with mild tenosynovitis. The tibialis anterior and extensor hallucis longus and extensor digitorum longus tendons are normal. Additional mild tenosynovitis along the normal tibialis posterior tendon. The flexor digitorum longus and flexor hallucis longus tendons are normal. Plantar fascia: Small plantar calcaneal spur with mild thickening and mild increased signal of the plantar aponeurosi s consistent with mild chronic enthesopathy. No associated marrow chronic soft tissue edema to sugges t acute plantar fasciitis. Bones/other: Bone alignment is normal. No fracture or pathologic marrow replacing process. 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 The Lisfranc ligament complex is normal. Nonspecific foca l increased fluid signal in the cephalad aspect of Kager's fat pad. Fluid: Small amount of fluid at the posterior recess of the ankle joint and at the lateral recess of the josesito caneocuboid joint. There is a multilobulated ganglion cyst extending across a 5.5 cm medial collatera l along the dorsal aspect of the hindfoot with multiple septated cystic components largest measuring up to 1.5 x 1 x 1 cm. This appears to arise from the talonavicular articulation. IMPRESSION: 1. Large multilobulated ganglion cyst extending across the dorsal aspect of the hindfoot. 2. Mild peroneal and tibialis posterior tenosynovitis with normal appearing tendons. 3. Chronic mild plantar enthesopathy. Reviewed, dictated and finalized at location A. IMPRESSION: 1. Large multilobulated ganglion cyst extending across the dorsal aspect of the hindfoot. 2. Mild peroneal and tibialis posterior tenosynovitis with normal appearing ten dons. 3. Chronic mild plantar enthesopathy.
== END 2025-01-18 12:45 | disposition home or self-care (01) ==
PROVIDERS: PCP Family Medicine; Visit Provider Podiatrist Foot & Ankle Surgery
DX: M67.472 Ganglion, left ankle and foot (principal); M66.372 Spontaneous rupture of flexor tendons, left ankle and foot; M77.32 Calcaneal spur, left foot
CPT/HCPCS: 73718